=== PATIENT | male | born 1975 | race Caucasian/White ===

== ENCOUNTER 2019-02-23 00:30 | Emergency (ER) | payer BC ==
[~2019-02-23] VITALS: Ht 170.2 cm; Wt 85.0 kg
[~2019-02-23 00:30] MED LIST: CPR3OO3.5 RIGHT EYE
[2019-02-23 00:35] VITALS: Ht 170.2 cm; Wt 85.0 kg
[2019-02-23] MEDS ORDERED: TETRACAINE 0.5% 4 ML OPH RIGHT EYE ONE (02:30)
[2019-02-23] MEDS ORDERED: FLUORESCEIN STRIP RIGHT EYE ONE (02:30)
[2019-02-23 03:02] VITALS: BP 118/82; PULSE 62; RESP 18
--- NOTE | 2019-02-23 04:29 | ERD ---
ER Documentation Chief Complaint Chief Complaint FOREIGN BODY IN RIGHT EYE. VISION INTACT. HPI This patient is a 44-year-old male presents to the emergency department complaining of foreign body to the right eye which occurred 6 hours ago. The patient is a fleet sales associate and he states a rock flew into his right eye. He feels a foreign body sensation now. He denies any changes to vision. He denies any fevers, chills, or other symptoms at this time. He does have mild pain. He has been using [id number]-[id number] eyedrops with some relief. He does not wear glasses or contacts. ROS All systems reviewed and are negative except as per history of present illness. Medications Home Meds Active Scripts Ciprofloxacin Opht* (Ciloxan*) 0.3%-3.5 Opht Oint, 1 APPLIC RIGHT EYE TID, #1 BOTTLE Prov:NIRANJAN KHOURY PA-C 02/23/19 Allergies Allergies: Coded Allergies: No Known Allergy (Unverified , 02/23/19) PMhx/Soc Medical and Surgical Hx: pt denies Medical Hx, pt denies Surgical Hx Hx Alcohol Use: Yes (SOCIALLY) Hx Substance Use: No Hx Tobacco Use: Yes Smoking Status: Current every day smoker FmHx Family History: No diabetes Physical Exam Vitals Vital Signs Date Temp Pulse Resp B/P (MAP) Pulse Ox O2 O2 Flow FiO2 Time Delivery Rate 02/23/19 97.7 62 18 118/82 100 Room Air 03:02 (94) 02/23/19 97.7 67 14 130/76 99 00:35 (94) Physical Exam Const: No acute distress Head: Atraumatic Eyes: Mild right conjunctival injection. No obvious gross foreign body. ENT: Normal External Ears, Nose and Mouth. Neck: Full range of motion. No meningismus. Resp: No respiratory distress. Skin: No petechiae or rashes Back: No midline or flank tenderness Ext: No cyanosis, or edema Neur: Awake and alert Psych: Normal Mood and Affect Results 24 hrs Current Medications Medications Dose Sig/Mario Start Time Status Last (Trade) Ordered Route PRN Stop Time Admin Dose Reason Admin Fluorescein 1 strip ONCE ONCE 02/23/19 DC Sodium RIGHT EYE 02:30 02/23/19 (Uavfl-H-Vahj 02:31 p) Tetracaine 1 drop ONCE ONCE 8/9/19 DC HCl RIGHT EYE 02:30 02/23/19 (Tetracaine 02:31 0.5% Steri-Unit Skylar) Procedures/MDM 44-year-old male presents to the emergency department with signs and symptoms most consistent with corneal abrasion of the right eye. Eye Exam w/ Wood's Lamp - bilateral: Visual Acuity: See nursing notes Visual [place]: Intact in all four quadrants bilaterally Lac ducts/glands: No swelling Lids w/ evertion: Normal, no foreign body Conj/[place]: Mild uptake noted at the 12 o'clock position. Anterior Chamber: Clear Ophthalmologic Assessment: Patient's ocular symptoms have stabilized while they have been evaluated in the department and are appropriate for outpatient work up. No evidence of ruptured globe, retinal detachment, acute angle closure glaucoma, or deep space infection. Plan for 24 hour ophthalmologic follow up. Departure Diagnosis: Primary Impression: Corneal abrasion, right Encounter type: initial encounter Qualified Codes: S05.01XA - Injury of conjunctiva and corneal abrasion without foreign body, right eye, initial encounter Condition: Fair Patient Instructions: Corneal Abrasion Referrals: [facility] Hours: Mon - Fri 9:00 AM - 5:00 PM Additional Instructions: SPECIALIST: YOU HAVE A MEDICAL CONDITION WHICH REQUIRES YOU TO SEE A SPECIALIST WITHIN THE NEXT 1-2 DAYS. PLEASE FOLLOW UP WITH YOUR PRIMARY PHYSICIAN FOR REFFERAL.IF YOU DO NOT HAVE A PRIMARY CARE PHYSICIAN AND/OR YOU CAN NOT AFFORD TO SEE A PHYSICIAN THE FOLLOWING RESOURCES HAVE BEEN SUPPLIED TO YOU. IT IS YOUR RESPONSIBILITY TO BE SEEN BY THE SPECIALIST: OPTHALMOLOGIST NIRANJAN KHOURY PA-C Feb 23, 2019 04:28
== END 2019-02-23 03:04 | disposition home or self-care (01) ==
LOC: FTE 00:30
DX: S05.01XA Injury of conjunctiva and corneal abrasion without foreign body, right eye, initial encounter (principal); F17.210 Nicotine dependence, cigarettes, uncomplicated; X58.XXXA Exposure to other specified factors, initial encounter; Y92.9 Unspecified place or not applicable
CPT/HCPCS: Z7502; Z7610; 99283